=== PATIENT | male | born 2000 | race Caucasian/White ===

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

== ENCOUNTER 2018-02-08 20:31 | Emergency (ER) | payer MEDICAID, OTHER ==
--- NOTE | 2018-02-08 20:39 | ED Physician Documentation ---
PD HPI FOCAL NEURO - Stated complaint Stated Complaint: ARM PX - Chief complaint Chief Complaint: Ext Problem PD PAST MEDICAL HISTORY - Past Surgical History Past Surgical History: No - Present Medications Home Medications: Ambulatory Orders Medication Instructions Recorded Confirmed Loperamide [Imodium] 2 mg PO QID PRN #10 capsule 03/14/17 Ondansetron HCl [Zofran] 4 mg PO Q6H PRN #10 tablet 03/14/17 - Allergies Allergies/Adverse Reactions: Allergies Allergy/AdvReac Type Severity Reaction Status Date / Time No Known Drug Allergies Allergy Verified 03/14/17 16:02 - Social History Does the pt smoke?: No Smoking Status: Never smoker Does the pt drink ETOH?: No Does the pt have substance abuse?: No - Immunizations Immunizations are current?: No Results - Vitals Vitals: Vital Signs - 24 hr 02/08/18 20:33 Temperature 36.7 C Heart Rate 93 Respiratory 16 Rate Blood Pressure 142/83 H O2 Saturation 98 Oxygen O2 Source Room air
--- NOTE | 2018-02-08 21:19 | ED Physician Documentation ---
PD HPI UPPER EXT INJURY - Stated complaint Stated Complaint: ARM PX - Chief complaint Chief Complaint: Ext Problem - History obtained from History obtained from: Patient - History of Present Illness Location: Right (Since yesterday he has had migratory numbness that seems to be focused in the right upper extremity but he is noticed it at times in the right lower extremity as well. He denies associated headache or left-sided symptoms. There is no neck or back pain with it. No fevers.) Review of Systems Constitutional: denies: Fever, Chills Respiratory: denies: Dyspnea, Cough GI: denies: Abdominal Pain, Nausea, Vomiting Neurologic: denies: Headache, Head injury, LOC PD PAST MEDICAL HISTORY - Past Medical History Past Medical History: No - Past Surgical History Past Surgical History: No - Present Medications Home Medications: Ambulatory Orders Medication Instructions Recorded Confirmed Loperamide [Imodium] 2 mg PO QID PRN #10 capsule 03/14/17 Ondansetron HCl [Zofran] 4 mg PO Q6H PRN #10 tablet 03/14/17 - Allergies Allergies/Adverse Reactions: Allergies Allergy/AdvReac Type Severity Reaction Status Date / Time No Known Drug Allergies Allergy Verified 03/14/17 16:02 - Social History Does the pt smoke?: No Smoking Status: Never smoker Does the pt drink ETOH?: No Does the pt have substance abuse?: No - Immunizations Immunizations are current?: No PD ED PE NORMAL - Vitals Vital signs reviewed: Yes - General General: Alert and oriented X 3, No acute distress - HEENT HEENT: PERRL, EOMI - Neck Neck: Supple, no meningeal sign, No bony TTP - Cardiac Cardiac: RRR, No murmur - Respiratory Respiratory: No respiratory distress, Clear bilaterally - Abdomen Abdomen: Non tender - Neuro Neuro: Alert and oriented X 3, supervisor bindery 2-12 intact, No motor deficit, Other (He has mild subjective numbness in the right upper extremity especially the forearm and hand, seems to spare the deltoid and bicep area. Also on the medial and lateral aspects of the hubbard but not the thigh. He does notice it in the mandibular area as well but sparing the forehead.) Eye Opening: Spontaneous Motor: Obeys Commands Verbal: Oriented GCS Score: 15 - Psych Psych: Normal mood, Normal affect Results - Vitals Vitals: Vital Signs - 24 hr 02/08/18 20:33 Temperature 36.7 C Heart Rate 93 Respiratory 16 Rate Blood Pressure 142/83 H O2 Saturation 98 Oxygen O2 Source Room air - Rads (name of study) CT Head Radiology: EMP read contemporaneously (normal) PD MEDICAL DECISION MAKING - ED course ED course: This is a 17-year-old with mild sensory symptoms that seem to be in the right side of the body. This would suggest a central neurologic cause. He appears well and there is no associated weakness. The differential diagnosis is broad. We will do a CAT scan of his head. But he would likely need neurologic follow- up as an outpatient. Departure - Departure Disposition: Home, Self Care Clinical Impression: Peripheral neuropathy Qualifiers: Peripheral neuropathy type: polyneuropathy, unspecified Qualified Code(s): G62.9 - Polyneuropathy, unspecified Condition: Good Record reviewed to determine appropriate education?: Yes Instructions: ED Neuropathy Peripheral Comments: If you develop any new symptoms or worsen in any way please return for reevaluation immediately. Otherwise it would be reasonable to follow-up for a neurologic specialist. The closest is in Dr. Jeffery Dee, the phone number is [phone]. Your blood pressure was elevated today on check into the emergency department. This does not mean that you have hypertension, it is a common phenomenon to come to the emergency department and have elevated blood pressure. I recommend that you see your primary care physician within the week to have it rechecked when you are feeling better.
--- NOTE | 2018-02-08 21:30 | CT Report ---
Reason: R sided defecit Procedure Date: 02/08/2018 Accession Number: [id number] / [id number] Procedure: CT - Head W/O CPT Code: FULL RESULT: EXAM: CT HEAD EXAM DATE: 02/08/2018 09:16 PM. CLINICAL HISTORY: R sided deficit. COMPARISON: None. TECHNIQUE: Multiaxial CT images were obtained from the foramen magnum to the vertex. Reformats: Sagittal and coronal. IV contrast: None. In accordance with CT protocol optimization, one or more of the following dose reduction techniques were utilized for this exam: automated exposure control, adjustment of mA and/or KV based on patient size, or use of iterative reconstructive technique. FINDINGS: Parenchyma: No intraparenchymal hemorrhage. No evidence of mass, midline shift, or CT findings of infarction. Kelly-white differentiation is distinct. Extraaxial Spaces: Normal for age. No subdural or epidural collections identified. Ventricles: Normal in size and position. Sinuses and Orbits: Imaged paranasal sinuses, orbits, and mastoids show no significant abnormality. Bones: No evidence of fracture or calvarial defect. Other: None. IMPRESSION: Normal head CT. RADIA
[2018-02-08] MEDS ORDERED: cephALEXin 250 MG CAPSULE PO STA (21:41)
[2018-02-08 21:48] VITALS: BP 125/78
== END 2018-02-08 21:50 | disposition home or self-care (01) ==
LOC: ED 20:31
DX: G62.9 Polyneuropathy, unspecified (principal); R03.0 Elevated blood-pressure reading, without diagnosis of hypertension
CPT/HCPCS: 70450; 99283

== ENCOUNTER 2018-02-09 20:36 | Emergency (ER) | payer OTHER ==
[2018-02-09 20:44] VITALS: BP 136/71
--- NOTE | 2018-02-09 21:32 | ED Physician Documentation ---
PD HPI ABD PAIN - Stated complaint Stated Complaint: RT LOW RIB PX - Chief complaint Chief Complaint: General - History obtained from History obtained from: Patient - History of Present Illness Timing - onset: Today Timing - duration: Minutes (has had RUQ abd tritching pain, assoiated with feeling of tightness in RUQ abd. Had been having numbness right arm and leg for couple of days, and this is improving. However now right abd pains, so here for evaluation.) Timing - details: Abrupt onset, Still present, Intermittant Quality: Dull, Stabbing, Pain Location: RUQ, Epigastric Improved by: No: Eating Worsened by: No: Eating Associated symptoms: No: Fever, Vomiting, Melena Similar symptoms before: No diagnosis Recently seen: Not recently seen (in the ER yesterday, with right arm/leg numbness, and CT head was normal/neuro exam subjective of numbness in face and right neck, arm and leg.) Review of Systems Constitutional: denies: Fever, Chills, Myalgias Nose: denies: Rhinorrhea / runny nose, Congestion Throat: denies: Sore throat Cardiac: denies: Palpitations, Pedal edema, Calf pain Respiratory: denies: Cough GI: reports: Abdominal Pain. denies: Nausea, Vomiting, Diarrhea : denies: Dysuria, Frequency Skin: denies: Rash, Lesions PD PAST MEDICAL HISTORY - Past Medical History Cardiovascular: None Respiratory: None Neuro: None - Past Surgical History Past Surgical History: No - Present Medications Home Medications: Ambulatory Orders Medication Instructions Recorded Confirmed No Known Home Medications 02/09/18 02/09/18 - Allergies Allergies/Adverse Reactions: Allergies Allergy/AdvReac Type Severity Reaction Status Date / Time No Known Drug Allergies Allergy Verified 02/09/18 20:44 - Social History Does the pt smoke?: No Smoking Status: Never smoker Does the pt drink ETOH?: No Does the pt have substance abuse?: No - Immunizations Immunizations are current?: No PD ED PE NORMAL - Vitals Vital signs reviewed: Yes - General General: Alert and oriented X 3, No acute distress, Well developed/nourished - HEENT HEENT: Pharynx benign - Neck Neck: Supple, no meningeal sign, No adenopathy - Cardiac Cardiac: RRR, No murmur - Respiratory Respiratory: Clear bilaterally - Abdomen Abdomen: Normal bowel sounds, Soft, Non tender, Non distended - Male Male : Pt declined - Back Back: No CVA TTP, No spinal TTP - Derm Derm: Normal color, Warm and dry, No rash - Extremities Extremities: No tenderness to palpate - Neuro Neuro: Alert and oriented X 3, real estate photographer 2-12 intact, No motor deficit, No sensory deficit Eye Opening: Spontaneous Motor: Obeys Commands Verbal: Oriented GCS Score: 15 Results - Vitals Vitals: Oxygen O2 Source Room air - Labs Labs: Laboratory Tests 02/09/18 02/09/18 02/09/18 22:05 22:05 22:05 WBC 6.3 RBC 4.83 Hgb 15.5 Hct 45.4 MCV 93.9 MCH 32.1 H MCHC 34.2 RDW 12.8 Plt Count 140 MPV 10.7 Neut # (Auto) 4.2 Lymph # (Auto) 1.5 Rush # (Auto) 0.5 Eos # (Auto) 0.0 Baso # (Auto) 0.0 Absolute Nucleated RBC 0.01 Nucleated RBC % 0.2 Manual Slide Review Indicated WBC Morphology NORMAL APPEARANCE Platelet Estimate NORMAL (130-450,000) Platelet Morphology NORMAL APPEARANCE RBC Morph Micro Appear NORMAL APPEARANCE ESR 1 Sodium 137 Potassium 3.6 Chloride 101 Carbon Dioxide 29 Anion Gap 7.0 BUN 13 Creatinine 0.8 Estimated GFR (MDRD) 125 Glucose 113 H Calcium 9.8 Total Bilirubin 0.9 AST 17 ALT 15 Alkaline Phosphatase 48 Total Protein 7.8 Albumin 5.3 Globulin 2.5 Albumin/Globulin Ratio 2.1 Lipase 30 Urine Color Urine Clarity Urine pH Ur Specific [place] Urine Protein Urine Glucose (UA) Urine Ketones Urine Occult Blood Urine Nitrite Urine Bilirubin Urine Urobilinogen Ur Leukocyte Esterase Ur Microscopic Review Urine Culture Comments 02/09/18 22:23 WBC RBC Hgb Hct MCV MCH MCHC RDW Plt Count MPV Neut # (Auto) Lymph # (Auto) Rush # (Auto) Eos # (Auto) Baso # (Auto) Absolute Nucleated RBC Nucleated RBC % Manual Slide Review WBC Morphology Platelet Estimate Platelet Morphology RBC Morph Micro Appear ESR Sodium Potassium Chloride Carbon Dioxide Anion Gap BUN Creatinine Estimated GFR (MDRD) Glucose Calcium Total Bilirubin AST ALT Alkaline Phosphatase Total Protein Albumin Globulin Albumin/Globulin Ratio Lipase Urine Color YELLOW Urine Clarity CLEAR Urine pH 6.5 Ur Specific [place] 1.025 Urine Protein NEGATIVE Urine Glucose (UA) NEGATIVE Urine Ketones 15 H Urine Occult Blood NEGATIVE Urine Nitrite NEGATIVE Urine Bilirubin NEGATIVE Urine Urobilinogen 0.2 (NORMAL) Ur Leukocyte Esterase NEGATIVE Ur Microscopic Review NOT INDICATED Urine Culture Comments NOT INDICATED PD MEDICAL DECISION MAKING - ED course Complexity details: reviewed results, re-evaluated patient, considered differential, d/w patient Departure - Departure Disposition: 01 Home, Self Care Clinical Impression: Right sided abdominal pain Condition: Stable Record reviewed to determine appropriate education?: Yes Instructions: ED Abdominal Pain Unkn Cause Comments: Your CT scan did not show any abnormalities on the right side nor any signs of vascular abnormality such as clots or dissections. The scan did show some inflammation on the left sided intestine. He can do some anti-inflammatory such as ibuprofen or naproxen twice daily for that recheck if persistent pains. Recheck if diarrhea or bloody stools or any other concerns. Follow-up with your primary care if recurring or persistent symptoms. Discharge Date/Time: 02/10/18 00:43
[2018-02-09] MEDS ORDERED: SODIUM CHLORIDE 0.9% 1,000 ML IV ONE (21:50)
[2018-02-09 22:16] LABS: BASOPHILS % (AUTO) 0.2 %; EOSINOPHILS % (AUTO) 0.1 %; HGB - HEMOGLOBIN 15.5 g/dL (14.0-18.0); LYMPHOCYTES # (AUTO) 1.5 10^3/uL (1.5-3.5); LYMPHOCYTES % (AUTO) 23.8 %; MEAN CORPUSCULAR HEMOGLOBIN 32.1 pg (27.0-31.0); MEAN CORPUSCULAR HGB CONC 34.2 g/dL (32.0-36.0); MEAN CORPUSCULAR VOLUME 93.9 fL (80.0-94.0); MEAN PLATELET VOLUME 10.7 fL (7.4-11.4); MONOCYTES # (AUTO) 0.5 10^3/uL (0.0-1.0); MONOCYTES % (AUTO) 8.7 %; NEUTROPHILS # (AUTO) 4.2 10^3/uL (1.5-6.6); NEUTROPHILS % (AUTO) 67.2 %; PLT - PLATELET COUNT 140 10^3/uL (130-450); RED BLOOD COUNT 4.83 10^6/uL (4.70-6.10); RED CELL DISTRIBUTION WIDTH 12.8 % (12.0-15.0); WHITE BLOOD COUNT 6.3 x10^3/uL (4.8-10.8)
[2018-02-09 22:24] LABS: ALBUMIN 5.3 g/dL (3.2-5.5); ALBUMIN/GLOBULIN RATIO 2.1 (1.0-2.2); BILIRUBIN,TOTAL 0.9 mg/dL (0.2-1.0); CALCIUM 9.8 mg/dL (8.5-10.3); TOTAL PROTEIN 7.8 g/dL (6.7-8.2)
[2018-02-09] MEDS ORDERED: IOVERSOL 320 100 ML VIAL IVP ONE ×2 (22:25→23:02)
[2018-02-09 22:29] LABS: PLATELET ESTIMATE, MANUAL NORMAL (130-450,000) (NORMAL); PLATELET MORPHOLOGY NORMAL APPEARANCE (NORMAL); RBC MORPHOLOGY (MULTIPLE) NORMAL APPEARANCE (NORMAL)
[2018-02-09 22:33] LABS: BILIRUBIN,URINE NEGATIVE (NEGATIVE); CLARITY,URINE CLEAR (CLEAR); GLUCOSE, URINE (UA) NEGATIVE (NEGATIVE); KETONES,URINE (UA) 15 mg/dL (NEGATIVE); LEUKOCYTE ESTERASE, URINE NEGATIVE (NEGATIVE); NITRITE,URINE NEGATIVE (NEGATIVE); OCCULT BLOOD,URINE NEGATIVE (NEGATIVE); PH,URINE 6.5 PH (5.0-7.5); PROTEIN,URINE NEGATIVE (NEGATIVE); UROBILINOGEN,URINE 0.2 (NORMAL) E.U./dL (NORMAL)
[2018-02-09 22:55] LABS: CREATININE 0.8 mg/dL (0.6-1.2)
--- NOTE | 2018-02-09 23:37 | CT Report ---
Reason: recent arm and leg numbness; today RUQ abd pain Procedure Date: 02/09/2018 Accession Number: [id number] / [id number] Procedure: CT - Chest Angio (AORTA) CPT Code: FULL RESULT: EXAM: CT ANGIOGRAM CHEST, ABDOMEN AND PELVIS EXAM DATE: 02/09/2018 10:57 PM. CLINICAL HISTORY: Recent arm and leg numbness. Right upper quadrant abdominal pain today. COMPARISONS: None. TECHNIQUE: Routine axial helical CT angiographic imaging was performed through the chest, abdomen, and pelvis. IV Contrast: 90 ML OPTIRAY 320. Reconstructions: Coronal, sagittal, and 3D MIP reconstructions of the aorta. In accordance with CT protocol optimization, one or more of the following dose reduction techniques were utilized for this exam: automated exposure control, adjustment of mA and/or KV based on patient size, or use of iterative reconstructive technique. FINDINGS: Vascular Structures: No aneurysm, dissection, or significant atherosclerotic disease of the thoracic aorta, abdominal aorta, or iliac arteries. The visualized pulmonary, mesenteric, and solid organ vascular structures are also within normal limits. No pulmonary embolus through the segmental arteries. Lungs/Pleura: No focal infiltrate, pleural effusion, or pneumothorax. Mediastinum: Residual thymic tissue in the anterior mediastinum. Heart size is normal. No pericardial effusion. No adenopathy. Abdominal Organs: Unremarkable arterial phase appearance of the liver, spleen, pancreas, adrenal glands, and kidneys. Gallbladder and bile Ducts: Unremarkable. No visualized stones or biliary duct dilatation. Peritoneal Cavity/GI Tract: Colorectal wall thickening with adjacent mesenteric and mesorectal fat stranding, splenic flexure of the rectum. No evidence for bowel obstruction. The appendix is normal. No free fluid, pneumoperitoneum, or adenopathy. Pelvic Organs: Normal. The bladder and visualized pelvic organs are within normal limits. Bones: Normal. Other: None. IMPRESSION: 1. No aortic aneurysm or dissection. 2. Proctocolitis, splenic flexure through rectum. RADIA
--- NOTE | 2018-02-09 23:37 | CT Report ---
Reason: right abd discomfort; arm and leg numbness Procedure Date: 02/09/2018 Accession Number: [id number] / [id number] Procedure: CT - Abdomen/Pelvis Angio CPT Code: FULL RESULT: EXAM: CT ANGIOGRAM CHEST, ABDOMEN AND PELVIS EXAM DATE: 02/09/2018 10:57 PM. CLINICAL HISTORY: Recent arm and leg numbness. Right upper quadrant abdominal pain today. COMPARISONS: None. TECHNIQUE: Routine axial helical CT angiographic imaging was performed through the chest, abdomen, and pelvis. IV Contrast: 90 ML OPTIRAY 320. Reconstructions: Coronal, sagittal, and 3D MIP reconstructions of the aorta. In accordance with CT protocol optimization, one or more of the following dose reduction techniques were utilized for this exam: automated exposure control, adjustment of mA and/or KV based on patient size, or use of iterative reconstructive technique. FINDINGS: Vascular Structures: No aneurysm, dissection, or significant atherosclerotic disease of the thoracic aorta, abdominal aorta, or iliac arteries. The visualized pulmonary, mesenteric, and solid organ vascular structures are also within normal limits. No pulmonary embolus through the segmental arteries. Lungs/Pleura: No focal infiltrate, pleural effusion, or pneumothorax. Mediastinum: Residual thymic tissue in the anterior mediastinum. Heart size is normal. No pericardial effusion. No adenopathy. Abdominal Organs: Unremarkable arterial phase appearance of the liver, spleen, pancreas, adrenal glands, and kidneys. Gallbladder and bile Ducts: Unremarkable. No visualized stones or biliary duct dilatation. Peritoneal Cavity/GI Tract: Colorectal wall thickening with adjacent mesenteric and mesorectal fat stranding, splenic flexure of the rectum. No evidence for bowel obstruction. The appendix is normal. No free fluid, pneumoperitoneum, or adenopathy. Pelvic Organs: Normal. The bladder and visualized pelvic organs are within normal limits. Bones: Normal. Other: None. IMPRESSION: 1. No aortic aneurysm or dissection. 2. Proctocolitis, splenic flexure through rectum. RADIA
== END 2018-02-10 00:43 | disposition home or self-care (01) ==
LOC: ED 20:36
DX: R10.11 Right upper quadrant pain (principal); K52.9 Noninfective gastroenteritis and colitis, unspecified
CPT/HCPCS: 36415; 71275; 74174; 80053; 81003; 83690; 85025; 85651; 96360; 99283; Q9967; 81001; 87086

== ENCOUNTER 2018-02-13 18:06 | Emergency (ER) | payer OTHER ==
[2018-02-13 19:02] LABS: GLUCOSE, URINE (UA) NEGATIVE (NEGATIVE); KETONES,URINE (UA) >=80 mg/dL (NEGATIVE); LEUKOCYTE ESTERASE, URINE NEGATIVE (NEGATIVE); NITRITE,URINE NEGATIVE (NEGATIVE); OCCULT BLOOD,URINE NEGATIVE (NEGATIVE); PROTEIN,URINE TRACE mg/dL (NEGATIVE); UROBILINOGEN,URINE 0.2 (NORMAL) E.U./dL (NORMAL)
[2018-02-13 19:05] LABS: BILIRUBIN,URINE NEGATIVE (NEGATIVE); CLARITY,URINE CLEAR (CLEAR); ICTOTEST,URINE NEGATIVE
--- NOTE | 2018-02-13 19:25 | ED Physician Documentation ---
PD HPI ABD PAIN - Stated complaint Stated Complaint: LOW RT SIDE PX - Chief complaint Chief Complaint: Abd Pain - History obtained from History obtained from: Patient - History of Present Illness Timing - onset: Today (Seen here recently for vague symptoms. Initially for right-sided numbness. Head CT was done and negative. In a couple of days later for an odd sensation in the right upper quadrant. Dissection was considered and a CT angiogram of the chest and abdomen were done showing only proctocolitis but he has no diarrhea, in fact he is slightly constipated taking a stool softener. The pain was better WAS THE NUMBNESS but returned today on the right side of the abdomen. Noted some tachycardias on his apple watch.) Review of Systems Ten Systems: 10 systems reviewed and negative Constitutional: denies: Fever, Chills Cardiac: denies: Chest pain / pressure, Palpitations Respiratory: denies: Dyspnea, Cough GI: reports: Abdominal Pain, Constipation PD PAST MEDICAL HISTORY - Past Medical History Cardiovascular: None Respiratory: None Neuro: None Endocrine/Autoimmune: None GI: None : None HEENT: None Psych: None Musculoskeletal: None Derm: None - Past Surgical History Past Surgical History: No - Present Medications Home Medications: Ambulatory Orders Medication Instructions Recorded Confirmed No Known Home Medications 02/09/18 02/13/18 - Allergies Allergies/Adverse Reactions: Allergies Allergy/AdvReac Type Severity Reaction Status Date / Time No Known Drug Allergies Allergy Verified 02/13/18 18:14 - Social History Does the pt smoke?: No Smoking Status: Never smoker Does the pt drink ETOH?: No Does the pt have substance abuse?: No - Immunizations Immunizations are current?: No - POLST Patient has POLST: No PD ED PE NORMAL - Vitals Vital signs reviewed: Yes - General General: Alert and oriented X 3, No acute distress - Neck Neck: Supple, no meningeal sign, No bony TTP - Cardiac Cardiac: RRR, No murmur - Respiratory Respiratory: No respiratory distress, Clear bilaterally - Abdomen Abdomen: Normal bowel sounds, Soft, Non tender - Back Back: No CVA TTP, No spinal TTP - Derm Derm: Normal color, Warm and dry - Neuro Neuro: Alert and oriented X 3, 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 Eye Opening: Spontaneous Motor: Obeys Commands Results - Vitals Vitals: Vital Signs - 24 hr 11/29/18 11/29/18 11/29/18 18:12 19:20 20:22 Temperature 36.8 C 36.9 C Heart Rate 85 65 77 Respiratory 18 16 22 Rate Blood Pressure 157/90 H 136/78 H 122/74 O2 Saturation 98 99 100 Oxygen O2 Source Room air - EKG (time done) 1941 Rate: Rate (enter#) (76) Rhythm: NSR [place]: Normal Intervals: Normal [facility] Ischemia: ST elevation c/w repol Computer interpretation: Agree with computer - Labs Labs: Laboratory Tests 02/13/18 02/13/18 02/13/18 18:50 18:50 19:59 WBC 5.4 RBC 4.84 Hgb 15.4 Hct 45.3 MCV 93.7 MCH 31.9 H MCHC 34.1 RDW 12.5 Sodium Potassium Chloride Carbon Dioxide Anion Gap BUN Creatinine Estimated GFR (MDRD) Glucose Calcium Total Bilirubin AST ALT Alkaline Phosphatase Total Protein Albumin Globulin Albumin/Globulin Ratio Lipase Urine Color YELLOW Urine Clarity CLEAR Urine pH 6.0 Ur Specific [place] >=1.030 H Urine Protein TRACE Urine Glucose (UA) NEGATIVE Urine Ketones >=80 H Urine Occult Blood NEGATIVE Urine Nitrite NEGATIVE Urine Bilirubin NEGATIVE Urine Urobilinogen 0.2 (NORMAL) Ur Leukocyte Esterase NEGATIVE Ur Microscopic Review NOT INDICATED Urine Culture Comments NOT INDICATED Urine Opiates Screen NEGATIVE Ur Oxycodone Screen NEGATIVE Urine Methadone Screen NEGATIVE Ur Propoxyphene Screen NEGATIVE Ur Barbiturates Screen NEGATIVE Ur Tricyclics Screen NEGATIVE Ur Phencyclidine Scrn NEGATIVE Ur Amphetamine Screen NEGATIVE U Methamphetamines Scrn NEGATIVE U Benzodiazepines Scrn NEGATIVE Urine Cocaine Screen NEGATIVE U Cannabinoids Screen POSITIVE H Infectious [place] Assay 02/13/18 02/13/18 19:59 19:59 WBC RBC Hgb Hct MCV MCH MCHC RDW Sodium 139 Potassium 3.5 Chloride 103 Carbon Dioxide 24 Anion Gap 12.0 BUN 17 Creatinine 0.7 Estimated GFR (MDRD) 145 Glucose 81 Calcium 9.4 Total Bilirubin 1.5 H AST 13 ALT 13 Alkaline Phosphatase 46 Total Protein 7.8 Albumin 5.1 Globulin 2.7 Albumin/Globulin Ratio 1.9 Lipase 29 Urine Color Urine Clarity Urine pH Ur Specific [place] Urine Protein Urine Glucose (UA) Urine Ketones Urine Occult Blood Urine Nitrite Urine Bilirubin Urine Urobilinogen Ur Leukocyte Esterase Ur Microscopic Review Urine Culture Comments Urine Opiates Screen Ur Oxycodone Screen Urine Methadone Screen Ur Propoxyphene Screen Ur Barbiturates Screen Ur Tricyclics Screen Ur Phencyclidine Scrn Ur Amphetamine Screen U Methamphetamines Scrn U Benzodiazepines Scrn Urine Cocaine Screen U Cannabinoids Screen Infectious [place] Assay NEGATIVE PD MEDICAL DECISION MAKING - ED course ED course: 17-year-old with continued odd symptoms. Examination is normal at this time. The new abdominal pain actually sounds most like constipation and he admits to a history recently of constipation as well. He tried a stool softener without relief. Workup continues to be negative objectively. Although we did a drug test lu and I talked him about his marijuana use. He was smoking very heavily multiple times a day until 3 or 4 days ago when he abruptly stopped. Departure - Departure Disposition: 01 Home, Self Care Clinical Impression: Abdominal pain, Constipation Condition: Good Record reviewed to determine appropriate education?: Yes Instructions: Abdominal Pain, ED Constipation Comments: Follow up with your doctor next week as scheduled. Return for any new or worsening symptoms or if the anticonstipation regimen you took tonight does not help. Discharge Date/Time: 02/13/18 20:32
[2018-02-13 19:31] LABS: MUDS CUTOFF CONCENTRATIONS CUTOFF CONC BELOW:
[2018-02-13 19:45] LABS: AMPHETAMINE SCREEN,URINE NEGATIVE (NEGATIVE); BENZODIAZEPINES SCREEN, URINE NEGATIVE (NEGATIVE); COCAINE SCREEN URINE NEGATIVE (NEGATIVE); METHADONE SCREEN, URINE NEGATIVE (NEGATIVE); METHAMPHETAMINES SCREEN, URINE NEGATIVE (NEGATIVE); OPIATE SCREEN, URINE NEGATIVE (NEGATIVE); OXYCODONE SCREEN, URINE NEGATIVE (NEGATIVE); PROPOXYPHENE SCREEN, URINE NEGATIVE (NEGATIVE); TRICYCLIC ANTIDEPRESSANT,URINE NEGATIVE (NEGATIVE)
[2018-02-13 20:15] LABS: ALBUMIN 5.1 g/dL (3.2-5.5); ALBUMIN/GLOBULIN RATIO 1.9 (1.0-2.2); BILIRUBIN,TOTAL 1.5 mg/dL (0.2-1.0); CALCIUM 9.4 mg/dL (8.5-10.3); CREATININE 0.7 mg/dL (0.6-1.2); TOTAL PROTEIN 7.8 g/dL (6.7-8.2)
[2018-02-13 20:16] LABS: BASOPHILS % (AUTO) 0.6 %; EOSINOPHILS % (AUTO) 0.4 %; HGB - HEMOGLOBIN 15.4 g/dL (14.0-18.0); LYMPHOCYTES # (AUTO) 1.9 10^3/uL (1.5-3.5); MEAN CORPUSCULAR HEMOGLOBIN 31.9 pg (27.0-31.0); MEAN CORPUSCULAR HGB CONC 34.1 g/dL (32.0-36.0); MEAN CORPUSCULAR VOLUME 93.7 fL (80.0-94.0); MEAN PLATELET VOLUME 10.5 fL (7.4-11.4); MONOCYTES # (AUTO) 0.5 10^3/uL (0.0-1.0); MONOCYTES % (AUTO) 9.4 %; NEUTROPHILS # (AUTO) 2.9 10^3/uL (1.5-6.6); NEUTROPHILS % (AUTO) 53.6 %; PLT - PLATELET COUNT 133 10^3/uL (130-450); RED BLOOD COUNT 4.84 10^6/uL (4.70-6.10); RED CELL DISTRIBUTION WIDTH 12.5 % (12.0-15.0); WHITE BLOOD COUNT 5.4 x10^3/uL (4.8-10.8)
[2018-02-13 20:23] VITALS: BP 122/74
[2018-02-13] MEDS ORDERED: MAGNESIUM CITRATE 296 ML BOTTLE PO STA (20:25)
[2018-02-13 20:48] LABS: PLATELET ESTIMATE, MANUAL NORMAL (130-450,000) (NORMAL); PLATELET MORPHOLOGY 2+ GIANT PLATELETS (NORMAL); RBC MORPHOLOGY (MULTIPLE) NORMAL APPEARANCE (NORMAL)
== END 2018-02-13 20:32 | disposition home or self-care (01) ==
LOC: ED 18:06
DX: R10.9 Unspecified abdominal pain (principal); K59.00 Constipation, unspecified; R94.31 Abnormal electrocardiogram [ECG] [EKG]
CPT/HCPCS: 36415; 80053; 80306; 81003; 83690; 85025; 86308; 93005; 99283; A9270; 81001; 87086